=== PATIENT | female | born 2000 | race Two or more races ===

== ENCOUNTER 2020-03-28 15:50 | Emergency (ER) | payer OTHER ==
[~2020-03-28] VITALS: Ht 160 cm; Wt 104.3 kg
[2020-03-28] MEDS ORDERED: SYNTHROID75 MCG PO (16:01)
[2020-03-28] MEDS ORDERED: RITALIN5 M1 PO (16:01)
== END 2020-03-28 19:31 | disposition home or self-care (01) ==
LOC: EMR PED 15:50
DX: U07.1 COVID-19 (principal); R50.9 Fever, unspecified; J32.8 Other chronic sinusitis

== ENCOUNTER 2021-03-21 11:46 | Emergency (ER) | payer OTHER ==
[~2021-03-21] VITALS: Ht 160 cm; Wt 114.8 kg
[~2021-03-21 11:46] MED LIST: RITALIN5 M1 PO; SYNTHROID75 MCG PO
[2021-03-21] MEDS ORDERED: WELLBUTRIN SR100 MG PO (11:57)
== END 2021-03-21 15:28 | disposition home or self-care (01) ==
LOC: EMR PED 11:46
DX: J02.9 Acute pharyngitis, unspecified (principal); B34.9 Viral infection, unspecified; E16.1 Other hypoglycemia; E03.9 Hypothyroidism, unspecified; Z20.822 Contact with and (suspected) exposure to COVID-19

== ENCOUNTER 2022-02-03 14:56 | Emergency (ER) | payer OTHER ==
[~2022-02-03] VITALS: Ht 160 cm; Wt 114.8 kg
[~2022-02-03 14:56] MED LIST changes: +WELLBUTRIN SR100 MG PO
[2022-02-03] MEDS ORDERED: BACTRIM DS TAB1 EACH PO (18:51)
== END 2022-02-03 19:25 | disposition home or self-care (01) ==
LOC: ER 14:56
DX: R30.0 Dysuria (principal); N39.0 Urinary tract infection, site not specified; M79.10 Myalgia, unspecified site; R53.81 Other malaise; Z20.822 Contact with and (suspected) exposure to COVID-19

== ENCOUNTER 2022-05-18 12:39 | Emergency (ER) | payer OTHER ==
[~2022-05-18] VITALS: Ht 160 cm; Wt 113.4 kg
[~2022-05-18 12:39] MED LIST changes: +BACTRIM DS TAB1 EACH PO
[2022-05-18] MEDS ORDERED: NORFLEX100MG PO (15:21)
[2022-05-18] MEDS ORDERED: KETO10TA2 PO (15:21)
== END 2022-05-18 15:27 | disposition home or self-care (01) ==
LOC: ER 12:39
DX: M54.9 Dorsalgia, unspecified (principal); B34.9 Viral infection, unspecified; Z20.822 Contact with and (suspected) exposure to COVID-19

== ENCOUNTER → 2022-07-04 | Outpatient (CLI) | payer OTHER ==
[~2022-07-04] MED LIST changes: +KETO10TA2 PO; +NORFLEX100MG PO
== END | disposition home or self-care (01) ==
LOC: SONOGRAMA 10:48
DX: N93.8 Other specified abnormal uterine and vaginal bleeding (principal)

== ENCOUNTER 2022-08-01 08:54 | Emergency (ER) | payer OTHER ==
[~2022-08-01] VITALS: Ht 160 cm; Wt 113.9 kg
== END 2022-08-01 12:08 | disposition home or self-care (01) ==
LOC: ER 08:54
DX: S39.82XA Other specified injuries of lower back, initial encounter (principal); V48.0XXA Car driver injured in noncollision transport accident in nontraffic accident, initial encounter; Y93.89 Activity, other specified; Y92.481 Parking lot as the place of occurrence of the external cause; S29.8XXA Other specified injuries of thorax, initial encounter

== ENCOUNTER 2022-12-08 17:05 | Emergency (ER) | payer OTHER ==
[~2022-12-08] VITALS: Ht 175.3 cm; Wt 99.8 kg
== END 2022-12-08 19:22 | disposition home or self-care (01) ==
LOC: ER 17:05
PROVIDERS: Nurse Practitioner Family
DX: B34.9 Viral infection, unspecified (principal); E03.9 Hypothyroidism, unspecified; Z20.822 Contact with and (suspected) exposure to COVID-19

== ENCOUNTER 2023-02-11 20:21 | Emergency (ER) | payer OTHER ==
[~2023-02-11] VITALS: Ht 160 cm; Wt 104.3 kg
[2023-02-11] MEDS ORDERED: SYNTHROID75 MCG PO (21:08)
== END 2023-02-11 22:47 | disposition home or self-care (01) ==
LOC: ER 20:21
DX: R10.9 Unspecified abdominal pain (principal)

== ENCOUNTER 2023-03-16 18:02 | Emergency (ER) | payer OTHER ==
[~2023-03-16] VITALS: Ht 167.6 cm; Wt 104.3 kg
[2023-03-16] MEDS ORDERED: [UNRECOGNIZED DRUG - OTHER] (18:10)
[2023-03-16] MEDS ORDERED: WELLBUTRIN XL150 M1 (18:11)
[2023-03-16] MEDS ORDERED: RESTORIL30 M1 (18:11)
[2023-03-16 19:46] LABS: PH,URINE 6.5 (5.0-8.0); URINE APPEARANCE Cloudy; URINE BILIRRUBIN Negative (NEGATIVE); URINE BLOOD Negative; URINE COLOR Yellow; URINE GLUCOSE Negative (NEGATIVE); URINE LEUKOCYTE Moderate; URINE NITRATE Negative; URINE PROTEIN Trace (NEGATIVE)
[2023-03-16 19:48] LABS: HEMATOCRIT 33.4 % (36.0-45.00); HEMOGLOBIN 10.8 g/dL (12.0-15.00); MEAN CELL VOLUME 71.1 fL (80.00-100.00); MEAN CORPUSCULAR HGB CONC 32.4 g/dl (32.0-36.0); PLATELET COUNT 360 K/uL (150-450); RED CELL DISTRIBUTION WIDTH 17.3 % (11.5-14.5)
[2023-03-16 19:50] LABS: URINE BACTERIA 4426.3 uL (0.0-1933); URINE EPITHELIAL CELLS 104.5 uL (0.0-38.8); URINE RBC 14.9 uL (0.0-20.8); URINE WBC 126.6 uL (0.0-23.2)
[2023-03-16 20:19] LABS: ALBUMIN 3.3 gm/dL (3.4-5.0); BILIRUBIN TOTAL 0.62 mg/dL (0.3-1.2); CREATININE SERUM 0.86 mg/dL (0.55-1.02); GFR 82.51; GLOBULINA 4.9 G/DL (2.4-3.5); POTASSIUM 4.8 mEq/L (3.5-5.1); TOTAL PROTEIN 8.2 gm/dL (6.4-8.2)
== END 2023-03-16 22:26 | disposition home or self-care (01) ==
LOC: ER 18:03
PROVIDERS: General Practice
DX: B34.8 Other viral infections of unspecified site (principal)

== ENCOUNTER 2023-04-05 15:34 | Emergency (ER) | payer OTHER ==
[~2023-04-05] VITALS: Ht 160 cm; Wt 114.3 kg
[~2023-04-05 15:34] MED LIST changes: +RESTORIL30 M1; +WELLBUTRIN XL150 M1; +[UNRECOGNIZED DRUG - OTHER]
[2023-04-05] MEDS ORDERED: RITALIN5 M1 PO (16:12)
[2023-04-05] MEDS ORDERED: SYNTHROID75 MCG PO (16:12)
[2023-04-05] MEDS ORDERED: ABILIFY5 MG PO (16:12)
[2023-04-05] MEDS ORDERED: WELLBUTRIN SR150 MG PO (16:13)
[2023-04-05 18:24] LABS: HEMATOCRIT 32.1 % (36.0-45.00); HEMOGLOBIN 10.2 g/dL (12.0-15.00); MEAN CELL VOLUME 71.8 fL (80.00-100.00); MEAN CORPUSCULAR HEMOGLOBIN 22.7 pg (27.00-32.0); MEAN CORPUSCULAR HGB CONC 31.6 g/dl (32.0-36.0); PLATELET COUNT 354 K/uL (150-450); RED BLOOD COUNT 4.47 M/uL (4.00-6.00); RED CELL DISTRIBUTION WIDTH 17.1 % (11.5-14.5)
== END 2023-04-05 19:55 | disposition home or self-care (01) ==
LOC: ER 15:35
PROVIDERS: General Practice
DX: J32.9 Chronic sinusitis, unspecified (principal); Z20.822 Contact with and (suspected) exposure to COVID-19

== ENCOUNTER 2024-01-19 16:20 | Emergency (ER) | payer OTHER ==
[~2024-01-19] VITALS: Ht 157.5 cm; Wt 123.8 kg
[~2024-01-19 16:20] MED LIST changes: +ABILIFY5 MG PO; +WELLBUTRIN SR150 MG PO
[2024-01-19] MEDS ORDERED: 0.9 % SODIUM CHLORIDE 1,000 ML IV STA (16:44)
[2024-01-19 17:08] LABS: HEMATOCRIT 28.3 % (36.0-45.00); MEAN CORPUSCULAR HGB CONC 30.8 g/dl (32.0-36.0); PLATELET COUNT 432 K/uL (150-450); RED BLOOD COUNT 4.57 M/uL (4.00-6.00); RED CELL DISTRIBUTION WIDTH 18.5 % (11.5-14.5)
[2024-01-19 17:10] LABS: HEMOGLOBIN 8.7 g/dL (12.0-15.00); MEAN CELL VOLUME 61.9 fL (80.00-100.00)
[2024-01-19 17:24] LABS: CALCIUM 8.2 mg/dL (8.5-10.1); CREATININE SERUM 0.7 mg/dL (0.55-1.02); GFR 103.69; POTASSIUM 4.56 mEq/L (3.5-5.1)
[2024-01-19 17:42] LABS: PH,URINE 5.5 (5.0-8.0); URINE APPEARANCE Turbid; URINE BACTERIA 2839.8 uL (0.0-1933); URINE BILIRRUBIN Negative (NEGATIVE); URINE BLOOD Negative; URINE COLOR Yellow; URINE EPITHELIAL CELLS 66.9 uL (0.0-38.8); URINE GLUCOSE Negative (NEGATIVE); URINE KETONE Negative (NEGATIVE); URINE LEUKOCYTE Trace; URINE NITRATE Negative; URINE PROTEIN Trace (NEGATIVE); URINE RBC 20.9 uL (0.0-20.8); URINE UROBILINOGEN 0.2 E.U./dl; URINE WBC 106.3 uL (0.0-23.2)
[2024-01-19 17:59] LABS: URINE CAST 0.15 uL (0.0-1.40); URINE CRYSTALS MANY /HPF
[2024-01-19] MEDS ORDERED: METRONIDAZOLE/SODIUM CHLORIDE 500 MG/100 ML PIGGYBACK IV SCH (20:21)
[2024-01-19] MEDS ORDERED: CIPROFLOXACIN IN 5 % DEXTROSE 400 MG/200 ML PIGGYBAG IV ONE (20:30)
== END 2024-01-19 22:21 | disposition home or self-care (01) ==
LOC: ER 16:21
PROVIDERS: Emergency Medicine
DX: K52.89 Other specified noninfective gastroenteritis and colitis (principal)
CPT/HCPCS: 36415; 96365; 96366; 99282; J0744; J3490; J7030